=== PATIENT | female | born 1960 | race Caucasian/White ===

== ENCOUNTER 2021-07-07 13:04 | Outpatient (REF) | payer MEDICARE, MEDICAID, SELFPAY ==
[2021-07-07 13:37] VITALS: BMI 26.6
[2021-07-07 13:38] VITALS: BP 124/57; PULSE 63; RESP 16; TEMP 36.1; O2SAT 98
== END 2021-07-07 13:05 | disposition home or self-care (01) ==
LOC: HO.MS 13:04
PROVIDERS: Visit Provider Ophthalmology
PROC: (CPT 67840; principal; 2021-07-07 15:20)
DX: H02.821 Cysts of right upper eyelid (principal); H02.822 Cysts of right lower eyelid
CPT/HCPCS: 67840 ×3; 88305